=== PATIENT | female | born 1950 | race Caucasian/White ===

== ENCOUNTER → 2022-04-06 08:53 | Outpatient (CLI) | payer OTHER, SELFPAY ==
--- NOTE | 2022-04-06 08:58 | DI.CT.S_ITS ---
PROCEDURE: CT SINUS SCREEN WO CON INDICATIONS: Progressive chronic sinusitis TECHNIQUE: Noncontrast 3.0 mm axial images acquired from the frontal sinuses to the mid-sella, with coronal and sagittal reformats. For radiation dose reduction, the following was used: automated exposure control, adjustment of mA and/or kV according to patient size. COMPARISON: None. FINDINGS: Image quality: Excellent. Maxillary Sinuses: Moderate mucosal thickening is seen within the left maxillary sinus and there is minimal mucosal thickening within the right maxillary sinus. The medial salazar of the maxillary sinuses are demineralized. There is an apparent nonnative ostium along the medial wall of the right maxillary sinus, as on series 4, image 34. Ethmoid Air Cells: There is moderate to prominent left-sided and moderate right-sided mucosal thickening. Generalized bony demineralization can be seen of the ethmoid air cell septations. Sphenoid Sinuses: No bony remodeling or destruction. Mild mucosal thickening is seen within the sphenoid sinuses. Frontal Sinuses: No bony remodeling or destruction. [id number]-[id number] mucosal thickening is seen involving the inferomedial frontal sinuses. Ostiomeatal Complexes: The ostiomeatal complexes are nearly completely occluded by soft tissue thickening. The uncinate processes are demineralized. Miscellaneous: Visualized intra-orbital contents are normal. 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 The left catrina bullosa demonstrates moderate mucosal thickening. There is [id number] leftward nasal septal deviation. IMPRESSION: Generalized paranasal sinus disease is seen, which is worst involving the left maxillary sinus. Areas of bony demineralization are seen, which are consistent with chronic sinusitis. Nearly completely occluded ostiomeatal complexes, with demineralization. 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 Dictated by: Chu Saeed M.D. on 04/06/2022 at 8:50 Approved by: Chu Saeed M.D. on 04/06/2022 at 8:53
== END ==
PROVIDERS: PCP Family Medicine; Referring Provider Family Medicine; Visit Provider Family Medicine
DX: J34.3 Hypertrophy of nasal turbinates (principal); J32.8 Other chronic sinusitis; J34.2 Deviated nasal septum; F41.9 Anxiety disorder, unspecified; E78.5 Hyperlipidemia, unspecified; I10 Essential (primary) hypertension
CPT/HCPCS: 70486

== ENCOUNTER → 2023-08-12 08:28 | Outpatient (CLI) | payer MEDICARE, OTHER, SELFPAY ==
[2023-08-12 20:13] LABS: Add Manual Diff / Slide Review NO; Basophils Absolute Auto 100 /uL (0-100); Basophils Percent Auto 0.9 % (0-2); Eosinophils Absolute Auto 500 /uL (0-450); Eosinophils Percent Auto 5.8 % (2-4); Hemoglobin 13.7 g/dL (12.0-16.0); Lymphocytes Absolute Auto 2300 /uL (1100-4500); Lymphocytes Percent Auto 28.6 % (25-40); Mean Corpuscular HGB Conc 34.2 % (30-36); Mean Corpuscular Hemoglobin 31.5 PG (26-34); Mean Corpuscular Volume 92.2 fL (80-100); Monocytes Absolute Auto 800 /uL (0-900); Monocytes Percent Auto 10.2 % (3-14); Neutrophils Absolute Auto 4300 /uL (1500-7000); Neutrophils Percent Auto 54.5 % (50-75); Platelet Count 316 X10^3/uL (150-400); Red Blood Cell Count 4.34 X10^6/uL (4.0-5.2); White Blood Cell Count 7.9 X10^3/uL (4.5-11.0)
[2023-08-12 20:18] LABS: Hemoglobin A1C% w Est Avg Glu 5.7 % (4.0-6.0)
[2023-08-12 20:20] LABS: BUN Creatinine Ratio 22.7 (6-22); Blood Urea Nitrogen 15 mg/dL (7-17); Calcium 9.9 mg/dL (8.4-10.2); Carbon Dioxide 31 mmol/L (22-32); Chloride 99 mmol/L (98-107); Cholesterol 218 mg/dL (140-199); Estimated Glomerular Filt Rate > 60 mL/min (>60); Glucose 122 mg/dL (80-110); HDL Cholesterol 56 mg/dL (40-60); HEMOLYSIS < 15 (0-50); LDL Cholesterol Calculated 142 mg/dL (<100); Potassium 4.3 mmol/L (3.4-5.1); Sodium 138 mmol/L (137-145); Triglycerides 102 mg/dL (35-150)
[2023-08-12 20:34] LABS: Creatinine Urine Random 147.1 mg/dL
[2023-08-12 20:38] LABS: Microalbumi Creatinin Ratio Ur 6.7 ug/mg CR (<30)
== END ==
PROVIDERS: PCP Family Medicine; Visit Provider Family Medicine
DX: E78.5 Hyperlipidemia, unspecified (principal); F41.1 Generalized anxiety disorder; F41.9 Anxiety disorder, unspecified; I10 Essential (primary) hypertension; R73.03 Prediabetes
CPT/HCPCS: 80048; 80061; 82043; 82570; 83036; 85025

== ENCOUNTER → 2023-11-21 08:28 | Outpatient (CLI) | payer MEDICARE, OTHER, SELFPAY ==
[2023-11-21 20:46] LABS: Cholesterol 148 mg/dL (140-199); HDL Cholesterol 56 mg/dL (40-60); LDL Cholesterol Calculated 78 mg/dL (<100); Triglycerides 71 mg/dL (35-150)
[2023-11-21 21:01] LABS: Hemoglobin A1C% w Est Avg Glu 6.1 % (4.0-6.0)
[2023-11-21 21:16] LABS: Creatinine Urine Random 80.7 mg/dL
[2023-11-21 21:21] LABS: Microalbumi Creatinin Ratio Ur 11.1 ug/mg CR (<30); Microalbumin Urine Random 0.9 mg/dL (0-1.6)
== END ==
PROVIDERS: PCP Family Medicine; Visit Provider Family Medicine
DX: E11.9 Type 2 diabetes mellitus without complications (principal); E78.5 Hyperlipidemia, unspecified; I10 Essential (primary) hypertension
CPT/HCPCS: 80061; 82043; 82570; 83036

== ENCOUNTER → 2024-07-28 13:09 | Outpatient (CLI) | payer MEDICARE, OTHER, SELFPAY ==
[2024-07-28 19:13] LABS: Add Manual Diff / Slide Review NO; Basophils Absolute Auto 100 /uL (0-100); Basophils Percent Auto 0.9 % (0-2); Eosinophils Absolute Auto 500 /uL (0-450); Eosinophils Percent Auto 6.4 % (2-4); Hematocrit 39.6 % (36-46); Hemoglobin 13.5 g/dL (12.0-16.0); Lymphocytes Absolute Auto 3000 /uL (1100-4500); Lymphocytes Percent Auto 35.3 % (25-40); Mean Corpuscular HGB Conc 34.1 % (30-36); Mean Corpuscular Hemoglobin 31.9 PG (26-34); Mean Corpuscular Volume 93.5 fL (80-100); Monocytes Absolute Auto 600 /uL (0-900); Monocytes Percent Auto 7.6 % (3-14); Neutrophils Absolute Auto 4300 /uL (1500-7000); Neutrophils Percent Auto 49.8 % (50-75); Platelet Count 296 X10^3/uL (150-400); Red Blood Cell Count 4.23 X10^6/uL (4.0-5.2); Red Cell Distribution Width 13.7 % (11.6-14.8); White Blood Cell Count 8.6 X10^3/uL (4.5-11.0)
[2024-07-28 19:26] LABS: BUN Creatinine Ratio 32.8 (6-22); Blood Urea Nitrogen 22 mg/dL (7-17); Calcium 10.1 mg/dL (8.4-10.2); Carbon Dioxide 28 mmol/L (22-32); Chloride 98 mmol/L (98-107); Estimated Glomerular Filt Rate > 60 mL/min (>60); Glucose 103 mg/dL (80-110); HEMOLYSIS 16 (0-50); Potassium 4.6 mmol/L (3.4-5.1); Sodium 135 mmol/L (137-145)
[2024-07-28 19:28] LABS: Hemoglobin A1C% w Est Avg Glu 5.9 % (4.0-6.0)
== END ==
PROVIDERS: PCP Family Medicine; Visit Provider Family Medicine
DX: E11.9 Type 2 diabetes mellitus without complications (principal); E78.2 Mixed hyperlipidemia; I10 Essential (primary) hypertension
CPT/HCPCS: 80048; 83036; 85025

== ENCOUNTER → 2025-02-16 10:08 | Outpatient (CLI) | payer MEDICARE, OTHER, SELFPAY ==
[2025-02-16 19:32] LABS: Add Manual Diff / Slide Review NO; Basophils Absolute Auto 100 /uL (0-100); Basophils Percent Auto 1.6 % (0-2); Eosinophils Absolute Auto 400 /uL (0-450); Hematocrit 39.8 % (36-46); Hemoglobin 13.5 g/dL (12.0-16.0); Lymphocytes Absolute Auto 2700 /uL (1100-4500); Mean Corpuscular HGB Conc 33.9 % (30-36); Mean Corpuscular Hemoglobin 31.8 PG (26-34); Mean Corpuscular Volume 93.6 fL (80-100); Monocytes Absolute Auto 500 /uL (0-900); Monocytes Percent Auto 7.3 % (3-14); Neutrophils Absolute Auto 3100 /uL (1500-7000); Neutrophils Percent Auto 46.1 % (50-75); Platelet Count 283 X10^3/uL (150-400); Red Blood Cell Count 4.25 X10^6/uL (4.0-5.2); Red Cell Distribution Width 13.7 % (11.6-14.8); White Blood Cell Count 6.8 X10^3/uL (4.5-11.0)
[2025-02-16 19:36] LABS: Cholesterol 150 mg/dL (140-199); HDL Cholesterol 59 mg/dL (40-60); LDL Cholesterol Calculated 73 mg/dL (<100); Triglycerides 88 mg/dL (35-150)
[2025-02-16 19:38] LABS: Hemoglobin A1C% w Est Avg Glu 5.8 % (4.0-6.0)
[2025-02-16 20:00] LABS: Creatinine Urine Random 98.77 mg/dL
[2025-02-16 20:07] LABS: Microalbumin Urine Random 1.2 mg/dL (0-1.6)
== END ==
PROVIDERS: PCP Family Medicine; Visit Provider Family Medicine
DX: E11.9 Type 2 diabetes mellitus without complications (principal); F41.1 Generalized anxiety disorder; M65.331 Trigger finger, right middle finger; I10 Essential (primary) hypertension; E78.5 Hyperlipidemia, unspecified
CPT/HCPCS: 80061; 82043; 82570; 83036; 85025